=== PATIENT | female | born 1940 | race Caucasian/White ===

== ENCOUNTER 2017-10-19 02:50 | Inpatient (IN) | payer MEDICARE ==
[~2017-10-19] VITALS: Ht 162.6 cm; Wt 79.8 kg
[~2017-10-19 02:50] MED LIST: ACIPHEX20 MG PO; AMOXICILLIN500 M1 PO; CLARITHROMYCIN500 MG PO; OMEPRAZOLE20 M1 PO
[2017-10-19] MEDS ORDERED: ONDANSETRON HCL INJ 2 MG/ML VIAL IV STA (03:12)
[2017-10-19] MEDS ORDERED: SODIUM CHLORIDE 0.9% 1000ML 1,000 ML IV ONE (03:15)
[2017-10-19] MEDS ORDERED: ONDANSETRON HCL INJ 2 MG/ML VIAL ONE (03:19)
[2017-10-19 03:45] LABS: BASOPHILS % 0.3 % (0.0-1.0); HEMATOCRIT 38.4 % (34.2-44.1); HEMOGLOBIN 13.5 g/dL (12.0-16.0); LYMPHOCYTES % 10.5 % (18.0-39.1); MEAN CORPUSCULAR HEMOGLOBIN 31.9 pg (28-32); MEAN CORPUSCULAR HGB CONC 35.2 g/dL (31-35); MEAN CORPUSCULAR VOLUME 90.8 fL (81-99); MONOCYTES # (AUTO) 0.6 (0.2-0.8); MONOCYTES % 6.2 % (4.4-11.3); NEUTROPHILS # (AUTO) 7.8 (2.1-6.9); NEUTROPHILS % 82.6 % (38.7-80.0); PLATELET COUNT 150 x10e3/uL (140-360); RED BLOOD COUNT 4.23 x10e6/uL (3.6-5.1); RED CELL DISTRIBUTION WIDTH 12.1 % (11.7-14.4)
[2017-10-19 04:06] LABS: ALBUMIN 3.7 g/dL (3.5-5.0); ALBUMIN/GLOBULIN RATIO 1.3 (0.8-2.0); ANION GAP 14.7 mmol/L (8-16); CALCIUM 9.2 mg/dL (8.4-10.2); CREATININE, SERUM 1.01 mg/dL (0.57-1.11); POTASSIUM 3.7 mmol/L (3.5-5.1)
[2017-10-19 04:47] LABS: BILIRUBIN,URINE NEGATIVE (NEGATIVE); CLARITY,URINE CLEAR (CLEAR); COLOR,URINE YELLOW (YELLOW); KETONES,URINE NEGATIVE (NEGATIVE); LEUKOCYTE ESTERASE ,URINE NEGATIVE (NEGATIVE); NITRITE,URINE NEGATIVE (NEGATIVE); PROTEIN,URINE DIPSTICK NEGATIVE (NEGATIVE); URINE UROBILINOGEN 0.2 mg/dL (0.2 - 1)
[2017-10-19 04:48] LABS: BACTERIA,URINE MODERATE /HPF; EPITHELIAL CELLS,URINE FEW /LPF; RBC,URINE 0-5 /HPF (0-5); WBC,URINE (MAN) 0-5 /HPF (0-5)
[2017-10-19] MEDS ORDERED: SODIUM CHLORIDE 0.9% 50ML 50 ML ONE (04:48)
[2017-10-19] MEDS ORDERED: IOPAMIDOL 370 MG/ML 200 ML INFUS..BTL INJ ONE (04:48)
[2017-10-19] MEDS ORDERED: PIPER-TAZ 3.375 GM 50 ML IV ONE (06:00)
--- NOTE | 2017-10-19 06:01 | Diagnostic Imaging Report ---
EXAM: CT ABDOMEN AND PELVIS with IV CONTRAST DATE: 10/19/2017 3:12 AM Time stamp on Exam: 0516 hours INDICATION: Left-sided abdominal pain COMPARISON: None TECHNIQUE: The abdomen and pelvis were scanned using a multidetector helical scanner. Coronal and sagittal reformations were obtained. Routine protocol performed. IV Contrast: 100 cc Isovue-370 Oral Contrast: Gastrografin CTDIvol has been reviewed. It is below the limits set by the Radiation Protocol Committee (RPC). FINDINGS: LOWER THORAX: No consolidations LIVER: Hepatic steatosis. No liver masses. BILIARY: The gallbladder is unremarkable. No ductal dilation. SPLEEN: No masses PANCREAS: No masses ADRENALS: No nodules KIDNEYS: Symmetric perfusion. No enhancing masses. No hydronephrosis. Simple cyst measuring 1.8 cm right kidney. Incidental extrarenal pelvis on the right. GI TRACT: Mild colonic wall thickening predominantly of the transverse colon with adjacent vascular congestion. Surgical changes around the proximal stomach. VESSELS: No abdominal aortic aneurysm. Incidental peripherally calcified 1 cm splenic artery aneurysm. The celiac, superior mesenteric and inferior mesenteric arteries are patent. PERITONEUM/RETROPERITONEUM: No free air or fluid LYMPH NODES: No lymphadenopathy REPRODUCTIVE ORGANS: Unremarkable BLADDER: Unremarkable SOFT TISSUES: Unremarkable BONES: No suspicious bone lesions. IMPRESSION: Nonspecific colitis involving the transverse colon. No bowel obstruction. No abscess. Signed by: Dr. Nona Urrutia M.D. on 10/19/2017 5:57 AM
[2017-10-19] MEDS ORDERED: MORPHINE SULFATE 2 MG/ML SYR IV PRN (06:30)
[2017-10-19] MEDS ORDERED: PIPER-TAZ 3.375 GM / NS 50ML IV SCH (06:30)
[2017-10-19] MEDS: METRONIDAZOLE 500MG/NS 100ML 100 ML IV SCH ×4 (07:26→16:25)
[2017-10-19] MEDS: SODIUM CHLORIDE 0.9% 1000ML 1,000 ML IV SCH ×2 (07:26→16:25)
[2017-10-19 07:50] VITALS: BP 96/54
[2017-10-19 09:28] VITALS: BP 96/54
[2017-10-19 12:13] VITALS: BP 116/57
[2017-10-19] MEDS: PIPER-TAZ 3.375 GM 50 ML IV SCH ×2 (13:56→23:48)
[2017-10-19 15:57] VITALS: BP 130/60
[2017-10-19] MEDS: FAMOTIDINE 20 MG TAB PO SCH (16:25)
--- NOTE | 2017-10-19 16:59 | History and Physical ---
PRIMARY CARE PROVIDER: No primary care physician listed. HISTORY OF PRESENT ILLNESS: Ms. Curran is a 77-year-old female admitted via the emergency department with complaints of left abdominal pain which she states was in the left upper quadrant and denies having any periumbilical pain. She states that it accompanied nausea, vomiting, diarrhea and fever which was constant. She denied any radiation of the pain, and at the most it was 10 out of 10 on admission. Currently she states her pain is a 1 on a scale of 0 to 10. She states that the medications being given have helped considerably. She has had nausea, loss of appetite, and denies any recent travel. She says that yesterday she did not have any vomiting but she had multiple diarrhea stools. Chills accompanied the fever. Today she has had headache at 5 on a 0 to 10 scale. Denies any vomiting or diarrhea today. PAST MEDICAL HISTORY: Hard of hearing, urinary tract infection, GERD, hiatal hernia. PAST SURGICAL HISTORY: Hysterectomy in 1984. Left stapedectomy . Hiatal hernia repair, EGD, colonoscopy in August of 2017. She gets annual mammograms, which have been negative. PAST SOCIAL HISTORY: Denies ever being a smoker. No alcohol or illicit drug use. She is retired. She is a housewife. PAST FAMILY HISTORY: Patient's mother at age 94. Her father had PTSD from World War II. Her sister had breast cancer. REVIEW OF SYSTEMS: The patient denies any current chills or fever. Has no complaints of headache, dizziness, sore throat, trouble swallowing. Denies any bleeding. She does have bruising on her anterior left leg. Denies shortness of breath, cough, phlegm, chest pain, palpitations, nausea, vomiting, diarrhea or constipation today. PHYSICAL EXAMINATION: VITAL SIGNS: Temperature 98.4, heart rate 73, blood pressure 112/59, respirations 18. Oxygen saturation 97%. Weight 160 pounds. BMI 27.46. GENERAL: Patient is a well-nourished, well-developed, morbidly obese female in no apparent distress. HEENT: Extraocular eye movements intact. Oropharynx clear. Pupils equal, round, reactive to light. Atraumatic, normocephalic. NECK: Supple. No lymphadenopathy, thyromegaly or JVD. CARDIOVASCULAR: Regular rate and rhythm. No murmur appreciated. RESPIRATORY: Air entry bilaterally. Lung sounds clear to auscultation. No wheezing, crackles or rhonchi. ABDOMEN: Bowel sounds positive. Soft, nontender, morbidly obese. EXTREMITIES: Hematoma noted on the left lower leg anteriorly. No palpable edema. No signs or symptoms of DVT. INTEGUMENTARY: Warm, dry. NEUROLOGIC: GCS 15. Nonfocal. Cranial nerves 2 through 12 intact. Alert and oriented times 4. PSYCHIATRY: Mood is appropriate. LABORATORY AND DIAGNOSTIC DATA: WBC is 9.4, hemoglobin 13.5, hematocrit 38.4, platelets 150. Sodium 135, potassium 3.7, chloride 105, CO2 19, BUN 12, creatinine 1.01. GFR 53. Glucose 133. Calcium 9.2. Total bilirubin 1.7, AST 32, ALT 25, alkaline phosphatase 107. Total protein 6.5. Albumin 3.7. Amylase 40. Lipase 12. Urinalysis showed trace amounts of blood and moderate amount of urine bacteria, negative for nitrite, negative for leukocyte esterase. CT of the abdomen and pelvis was completed today around 3 a.m. According to the interpreting radiologist, showed nonspecific colitis involving the transverse colon, no bowel obstruction and no abscess. There is no 12-lead EKG noted. ASSESSMENT AND PLAN: 1. Acute left upper quadrant abdominal pain, resolved. Monitor. PRN pain medication as needed. 1. Nausea, vomiting, diarrhea with dehydration and volume depletion. Monitor vomiting and diarrhea and treat symptoms. Continue p.r.n. Zofran. Continue IV fluids with normal saline at 125 mL an hour. Recheck labs in the morning. 2. Colitis. Continue volume repletion. Continue IV Zosyn and Flagyl, IV antibiotics. Patient is improving, may be able to be discharged tomorrow. 3. Gastroesophageal reflux disease. Will order Pepcid. 4. Status post fall 1 week ago with left anterior leg hematoma. Monitor. 5. Morbid obesity. Patient is currently on a clear-liquid diet for nutritional support. 6. Prophylaxis. Pepcid and SCDs. Dictated by: Bryon Viveros NP Job#: [id number]
[2017-10-19 20:00] VITALS: BP 121/65
[2017-10-19] MEDS ORDERED: ACETAMINOPHEN 325 MG TAB PO PRN (21:00)
[2017-10-20] VITALS (7 sets, daily range): BP systolic 95–133; BP diastolic 55–67
[2017-10-20] MEDS: METRONIDAZOLE 500MG/NS 100ML 100 ML IV SCH ×5 (00:37→23:15)
[2017-10-20] MEDS: SODIUM CHLORIDE 0.9% 1000ML 1,000 ML IV SCH ×3 (02:10→16:19)
[2017-10-20 05:25] LABS: BASOPHILS % 0.6 % (0.0-1.0); EOSINOPHILS # (AUTO) 0.1 (0.0-0.4); EOSINOPHILS % 1.3 % (0.0-6.0); HEMATOCRIT 33.4 % (34.2-44.1); HEMOGLOBIN 11.4 g/dL (12.0-16.0); LYMPHOCYTES # (AUTO) 1.2 (1.0-3.2); LYMPHOCYTES % 21.8 % (18.0-39.1); MEAN CORPUSCULAR HEMOGLOBIN 32.2 pg (28-32); MEAN CORPUSCULAR HGB CONC 34.1 g/dL (31-35); MONOCYTES # (AUTO) 0.6 (0.2-0.8); MONOCYTES % 10.5 % (4.4-11.3); NEUTROPHILS # (AUTO) 3.6 (2.1-6.9); NEUTROPHILS % 65.4 % (38.7-80.0); PLATELET COUNT 120 x10e3/uL (140-360); RED BLOOD COUNT 3.54 x10e6/uL (3.6-5.1); RED CELL DISTRIBUTION WIDTH 12.5 % (11.7-14.4)
[2017-10-20 05:31] LABS: MEAN CORPUSCULAR VOLUME 94.4 fL (81-99)
[2017-10-20 05:47] LABS: MAGNESIUM 1.9 MG/DL (1.3-2.1); PHOSPHORUS 3.2 MG/DL (2.3-4.7)
[2017-10-20 05:49] LABS: ALBUMIN/GLOBULIN RATIO 1.4 (0.8-2.0); ANION GAP 10.9 mmol/L (8-16); CALCIUM 8.3 mg/dL (8.4-10.2); CREATININE, SERUM 1.09 mg/dL (0.57-1.11); POTASSIUM 3.9 mmol/L (3.5-5.1)
[2017-10-20 06:09] LABS: THYROID STIMULATING HORMONE 4.462 uIU/mL (0.350-4.940)
[2017-10-20] MEDS: FAMOTIDINE 20 MG TAB PO SCH ×2 (07:23→16:19)
[2017-10-20] MEDS: PIPER-TAZ 3.375 GM 50 ML IV SCH ×3 (07:23→20:34)
[2017-10-20] MEDS ORDERED: SIMETHICONE 80 MG CHEW PO PRN (13:15)
[2017-10-20] MEDS ORDERED: LOPERAMIDE HCL 2 MG CAP PO PRN (13:15)
[2017-10-20] MEDS ORDERED: LOPERAMIDE HCL 2 MG CAP PO ONE (14:00)
[2017-10-20] MEDS: ONDANSETRON HCL INJ 2 MG/ML VIAL IV PRN ×2 (14:30→23:15)
[2017-10-20] MEDS: LACTOBACILLUS ACIDOPHILUS CAPSULE PO SCH (16:19)
[2017-10-21] VITALS (7 sets, daily range): BP systolic 116–151; BP diastolic 55–84
[2017-10-21] MEDS: SODIUM CHLORIDE 0.9% 1000ML 1,000 ML IV SCH ×4 (01:32→22:20)
[2017-10-21] MEDS: PIPER-TAZ 3.375 GM 50 ML IV SCH ×3 (05:58→21:14)
[2017-10-21 06:05] LABS: BASOPHILS % 0.7 % (0.0-1.0); EOSINOPHILS # (AUTO) 0.2 (0.0-0.4); EOSINOPHILS % 3.7 % (0.0-6.0); HEMATOCRIT 32.8 % (34.2-44.1); HEMOGLOBIN 11.1 g/dL (12.0-16.0); LYMPHOCYTES # (AUTO) 1.5 (1.0-3.2); LYMPHOCYTES % 33.5 % (18.0-39.1); MEAN CORPUSCULAR HEMOGLOBIN 31.7 pg (28-32); MEAN CORPUSCULAR HGB CONC 33.8 g/dL (31-35); MEAN CORPUSCULAR VOLUME 93.7 fL (81-99); MONOCYTES # (AUTO) 0.6 (0.2-0.8); MONOCYTES % 14.7 % (4.4-11.3); NEUTROPHILS # (AUTO) 2.1 (2.1-6.9); NEUTROPHILS % 47.2 % (38.7-80.0); PLATELET COUNT 110 x10e3/uL (140-360); RED CELL DISTRIBUTION WIDTH 12.5 % (11.7-14.4)
[2017-10-21] MEDS: METRONIDAZOLE 500MG/NS 100ML 100 ML IV SCH ×5 (06:08→23:31)
[2017-10-21 06:25] LABS: ANION GAP 10.8 mmol/L (8-16); CALCIUM 8.4 mg/dL (8.4-10.2); CREATININE, SERUM 0.99 mg/dL (0.57-1.11); POTASSIUM 3.8 mmol/L (3.5-5.1)
[2017-10-21] MEDS: FAMOTIDINE 20 MG TAB PO SCH (07:30)
[2017-10-21] MEDS: LACTOBACILLUS ACIDOPHILUS CAPSULE PO SCH ×2 (09:00→17:00)
[2017-10-22] VITALS (7 sets, daily range): BP systolic 115–157; BP diastolic 55–74
[2017-10-22] MEDS: SODIUM CHLORIDE 0.9% 1000ML 1,000 ML IV SCH ×2 (04:52→14:20)
[2017-10-22] MEDS: METRONIDAZOLE 500MG/NS 100ML 100 ML IV SCH ×2 (05:11→12:00)
[2017-10-22] MEDS: PIPER-TAZ 3.375 GM 50 ML IV SCH ×3 (05:38→21:42)
[2017-10-22] MEDS: ONDANSETRON HCL INJ 2 MG/ML VIAL IV PRN ×2 (05:39→21:42)
[2017-10-22 05:45] LABS: BASOPHILS % 0.8 % (0.0-1.0); EOSINOPHILS # (AUTO) 0.3 (0.0-0.4); EOSINOPHILS % 5.1 % (0.0-6.0); HEMOGLOBIN 12.1 g/dL (12.0-16.0); LYMPHOCYTES # (AUTO) 2.3 (1.0-3.2); LYMPHOCYTES % 44.6 % (18.0-39.1); MEAN CORPUSCULAR HEMOGLOBIN 31.3 pg (28-32); MEAN CORPUSCULAR HGB CONC 33.6 g/dL (31-35); MONOCYTES # (AUTO) 0.6 (0.2-0.8); MONOCYTES % 12.1 % (4.4-11.3); NEUTROPHILS # (AUTO) 1.9 (2.1-6.9); PLATELET COUNT 142 x10e3/uL (140-360); RED BLOOD COUNT 3.87 x10e6/uL (3.6-5.1); RED CELL DISTRIBUTION WIDTH 12.3 % (11.7-14.4)
[2017-10-22 05:58] LABS: ANION GAP 10.8 mmol/L (8-16); CALCIUM 8.7 mg/dL (8.4-10.2); CREATININE, SERUM 0.97 mg/dL (0.57-1.11); MAGNESIUM 2.1 MG/DL (1.3-2.1); POTASSIUM 3.8 mmol/L (3.5-5.1)
[2017-10-22] MEDS: PANTOPRAZOLE SOD 40 MG TABEC PO SCH (07:30)
[2017-10-22] MEDS: LACTOBACILLUS ACIDOPHILUS CAPSULE PO SCH ×2 (09:00→17:00)
[2017-10-22] MEDS ORDERED: METRONIDAZOLE 500 MG TAB PO SCH (18:00)
[2017-10-22] MEDS: METRONIDAZOLE 500 MG TAB PO SCH ×2 (18:07→23:49)
[2017-10-22] MEDS ORDERED: METRONIDAZOLE 500MG/NS 100ML 100 ML IV SCH (22:00)
[2017-10-23] VITALS: BP 117/64
[2017-10-23] MEDS: SODIUM CHLORIDE 0.9% 1000ML 1,000 ML IV SCH (01:50)
[2017-10-23 04:00] VITALS: BP 140/78
[2017-10-23] MEDS: PIPER-TAZ 3.375 GM 50 ML IV SCH (05:06)
[2017-10-23] MEDS: METRONIDAZOLE 500 MG TAB PO SCH (05:06)
[2017-10-23 07:53] VITALS: BP 134/72
[2017-10-23] MEDS: LACTOBACILLUS ACIDOPHILUS CAPSULE PO SCH (09:29)
[2017-10-23] MEDS: PANTOPRAZOLE SOD 40 MG TABEC PO SCH (09:29)
[2017-10-23] MEDS ORDERED: PROTONIX40 MG/ML PO (10:36)
[2017-10-23] MEDS ORDERED: FLAGYL500 MG PO (10:36)
[2017-10-23] MEDS ORDERED: Lactobacillus Acidophilus PO (10:36)
[2017-10-23 10:43] VITALS: BP 134/72
== END 2017-10-23 11:30 | disposition home or self-care (01) | DRG 392 ==
LOC: ER 02:50 → ERHOLD 06:20 → MED/SURG3 07:34
PROVIDERS: ADMIT Internal Medicine; ATTEND Internal Medicine
DX: K52.9 Noninfective gastroenteritis and colitis, unspecified (principal); E86.0 Dehydration; K21.9 Gastro-esophageal reflux disease without esophagitis; E66.01 Morbid (severe) obesity due to excess calories; Z68.30 Body mass index [BMI] 30.0-30.9, adult; H91.90 Unspecified hearing loss, unspecified ear
CPT/HCPCS: 36415; 74177; 80048; 80053; 81001; 82150; 83690; 83735; 84100; 84443; 85025; 87040; 87493; 96361; 96367; 96374; 99284; J2405; J2543; J7030; Q9967

== ENCOUNTER → 2018-02-13 | Day surgery (SDC) | payer MEDICARE ==
[2018-02-06 09:28] LABS: BASOPHILS # (AUTO) 0.1 (0.0-0.1); EOSINOPHILS # (AUTO) 0.2 (0.0-0.4); EOSINOPHILS % 2.8 % (0.0-6.0); HEMATOCRIT 41.8 % (34.2-44.1); LYMPHOCYTES # (AUTO) 2.9 (1.0-3.2); LYMPHOCYTES % 47.2 % (18.0-39.1); MEAN CORPUSCULAR HEMOGLOBIN 31.6 pg (28-32); MEAN CORPUSCULAR HGB CONC 33.5 g/dL (31-35); MEAN CORPUSCULAR VOLUME 94.4 fL (81-99); MONOCYTES # (AUTO) 0.6 (0.2-0.8); MONOCYTES % 9.1 % (4.4-11.3); NEUTROPHILS # (AUTO) 2.5 (2.1-6.9); NEUTROPHILS % 39.7 % (38.7-80.0); PLATELET COUNT 176 x10e3/uL (140-360); RED BLOOD COUNT 4.43 x10e6/uL (3.6-5.1); RED CELL DISTRIBUTION WIDTH 11.9 % (11.7-14.4)
[~2018-02-13] MED LIST changes: +ACIPHEX20 MG; +CHONDR SU A NA/HYALUR SOD 1 EACH KIT IO ONE; +CYCLOPENTOLATE HCL 2% OPTH SOLN 2 ML BTL OP ONE; +DEXAMETHASONE SOD PHOS INJ 4 MG/ML VIAL ONE; +EPHEDRINE SULFATE INJ 50 MG/10 ML SYR ONE; +EPINEPHRINE HCL INJ 1 MG/ML AMP ONE; +FENTANYL CITRATE/PF 100MCG/2 ML INJ ONE; +FLAGYL500 MG PO; +GATIFLOXACIN(OPTH) 5 ML LIQD ONE; +LIDOCAINE 2% /EPINEPHRINE 20 ML SDV INJ ONE; +LIDOCAINE HCL 2% LOCAL INJ 5 ML SDV VIAL INJ ONE; +LIDOCAINE HCL-PF 4% 40 MG/1 ML 5ML AMP ONE; +Lactobacillus Acidophilus PO; +MIDAZOLAM HCL 2 MG/2 ML VIAL ONE; +ONDANSETRON HCL INJ 2 MG/ML VIAL ONE; +PHENYLEPHRINE HCL 1% 10 MG/ML VIAL ONE; +PHENYLEPHRINE HCL 2 ML DROPS ONE; +PILOCARPINE HCL(OPTH) 15 ML LIQD ONE; +POVIDONE IODINE 5% (OPTH) 30 ML BTL ONE; +PROPOFOL IV EMULSION 10 MG/ML 20 ML VIAL ONE; +PROTONIX40 MG/ML PO; +SEVOFLURANE INHAL SOLN 250 ML PEN BTL ONE; +TOBRAMYCIN/DEXAMETHASONE(OPTH) 3.5 GM TUBE ONE
--- OUTSIDE RECORDS SUMMARY | 2018-02-13 07:27 | XMS REPORT | Clinical Summary ---
Author Author [facility] [place], [place] Organization [facility] Address Unknown Phone Unavailable Care Team Providers Care Blintze Roller Name Role Phone Sharpless PCP Allergies Not on File Medications Not on file Active Problems Not on file Social History Date Tobacco Use Types Packs/Day Years Used Never Assessed Sex Assigned at Date Recorded Not on file Industry Job Start Date Occupation Not on file Not on file Not on file Travel End Travel History Travel Start No recent travel history available. Last Filed Vital Signs Not on file Plan of Treatment Not on file Results Not on fileafter 02/12/2017 Insurance Payer Benefit Subscriber ID Type Phone Address Plan / Group MEDICARE MEDICARE A xxxxxxxxxx Medicare B
--- OUTSIDE RECORDS SUMMARY | 2018-02-13 07:27 | XMS REPORT ---
[facility] Address Unknown Phone Unavailable Care Team Providers Care Fig Caprifier Name Role Phone SAUNDRA WINKLER Unavailable Unavailable Problems This patient has no known problems. Allergies, Adverse Reactions, Alerts This patient has no known allergies or adverse reactions. Medications This patient has no known medications. Results Test Description Test Time Test Comments Text Results Atomic Results Result Comments CT ABDOMEN/PELVIS W 2017-10-19 05:52:00 [place] [address] Patient Name: MARITZA RICHARDS MR #: [id number] : 1940 Age/Sex: 77/F Req #: [id number] [facility] Physician: SAUNDRA WINKLER MD Ordered by: JEFFREY MO MD Report #: [id number] Location: MED[facility] Room/Bed: [facility] Procedure: [id number] CT/CT ABDOMEN/PELVIS W Exam Date: 10/19/17 Exam Time: 05 REPORT STATUS: Signed ADDENDUM #1 Dose modulation, iterative reconstruction, and/or weight based adjustment of the mA/kV was utilized to reduce the radiation dose to as low as reasonably achievable. Signed by: Dr. Natividad Urrutia M.D. on 12/10/2017 4:41 AM ORIGINAL REPORT EXAM: CT ABDOMEN AND PELVIS with IV CONTRAST DATE: 10/19/2017 3:12 AM Time stamp on Exam: 0516 hours INDICATION: Left-sided abdominal pain COMPARISON: None TECHNIQUE: The abdomen and pelvis were scanned using a multidetector helical scanner. Coronal and sagittal reformations were obtained. Routine protocol performed. IV Contrast: 100 cc Isovue-370 Oral Contrast: Gastrografin CTDIvol has been reviewed. It is below the limits set by the Radiation Protocol Committee (RPC) . FINDINGS: LOWER THORAX: No consolidations LIVER: Hepatic steatosis. No liver masses. BILIARY: The gallbladder is unremarkable. No ductal dilation. SPLEEN: No masses PANCREAS: No masses ADRENALS: No nodules KIDNEYS: Symmetric perfusion. No enhancing masses. No hydronephrosis. Simple cyst measuring 1.8 cm right kidney. Incidental extrarenal pelvis on the right. GI TRACT: Mild colonic wall thickening predominantly of the transverse colon with adjacent vascular congestion. Surgical changes around the proximal stomach. VESSELS: No abdominal aortic aneurysm. Incidental peripherally calcified 1 cm splenic artery aneurysm. The celiac, superior mesenteric and inferior mesenteric arteries are patent. PERITONEUM/RETROPERITONEUM: No free air or fluid LYMPH NODES: No lymphadenopathy REPRODUCTIVE ORGANS: Unremarkable BLADDER: Unremarkable SOFT TISSUES: Unremarkable BONES: No suspicious bone lesions. IMPRESSION: Nonspecific colitis involving the transverse colon. No bowel obstruction. No abscess. Signed by: Dr. Natividad Urrutia M.D. on 10/19/2017 5:57 AM Dictated By: NATIVIDAD URRUTIA MD [id number] Transcribed By: CAPRI on 10/19/17 0557 COPY TO: JEFFREY MO MD
--- OUTSIDE RECORDS SUMMARY | 2018-02-13 07:27 | XMS REPORT | Clinical Summary ---
Author Author [facility] Address Unknown Phone Unavailable Care Team Providers Care Supervisor Contact Lens Name Role Phone Alisha Perez PCP Allergies Active Allergy Reactions Severity Noted Date Comments Naproxen Sodium Other (See Comments) High 04/25/2016 nausea Acetaminophen Other (See Comments) High 04/25/2016 nausea Current Medications Prescription Sig. Disp. Refills Start End Date Status Date RABEprazole (ACIPHEX) 20 Take 20 mg by mouth Active mg EC tablet daily. aspirin (ECOTRIN) 81 MG Take 81 mg by mouth Active enteric coated tablet daily. rosuvastatin (CRESTOR) 10 Take 10 mg by mouth Active MG tablet nightly. Active Problems No known active problems Family History Medical History Relation Name Comments No Known Problems Brother No Known Problems Father No Known Problems Maternal Aunt No Known Problems Maternal Grandfather No Known Problems Maternal Grandmother No Known Problems Maternal Uncle No Known Problems Mother No Known Problems Paternal Aunt No Known Problems Paternal Grandfather No Known Problems Paternal Grandmother No Known Problems Paternal Uncle No Known Problems Sister Relation Name Status Comments Brother Father Maternal Aunt Maternal Grandfather Maternal Grandmother Maternal Uncle Mother Paternal Aunt Paternal Grandfather Paternal Grandmother Paternal Uncle Sister Social History Tobacco Use Types Packs/Day Years Used Date Never Smoker Smokeless Tobacco: Never Used Alcohol Use Drinks/Week oz/Week Comments No Sex Assigned at Date Recorded Not on file Last Filed Vital Signs Not on file Plan of Treatment Health Maintenance Due Date Last Done Comments SHINGRIX VACCINE (#1) 01/31/1992 ZOSTER VACCINE 2002 PNEUMOCOCCAL 2007 POLYSACCHARIDE VACCINE AGE 65 AND OVER PNEUMOCOCCAL-13 2007 INFLUENZA VACCINE 11/13/2017 Results Not on fileafter 02/12/2017 Insurance Payer Benefit Subscriber ID Type Phone Address Plan / Group MEDICARE MEDICARE xxxxxxxxxx Medicare [place], [place] PART A AND B
[2018-02-13 09:12] LABS: ANION GAP 15.2 mmol/L (8-16); CALCIUM 10.1 mg/dL (8.4-10.2); CREATININE, SERUM 1.04 mg/dL (0.57-1.11); POTASSIUM 4.2 mmol/L (3.5-5.1)
[2018-02-13 12:00] VITALS: BP 130/72
== END | disposition home or self-care (01) ==
LOC: OR 07:24
PROVIDERS: ATTEND Ophthalmology
DX: H25.12 Age-related nuclear cataract, left eye (principal); R06.00 Dyspnea, unspecified; K21.9 Gastro-esophageal reflux disease without esophagitis; Z01.810 Encounter for preprocedural cardiovascular examination; Z01.812 Encounter for preprocedural laboratory examination; Z98.41 Cataract extraction status, right eye; Z96.1 Presence of intraocular lens
CPT/HCPCS: 36415 ×2; 66984; 80048; 85025; 93005; J0171; J1100; J2001 ×2; J2250; J2370; J2405; J2704; V2788